=== PATIENT | male | born 1950 | race Caucasian/White ===

== ENCOUNTER 2016-12-03 09:26 | Emergency (ER) | payer OTHER ==
[~2016-12-03] VITALS: Ht 172.7 cm; Wt 94.0 kg
[~2016-12-03 09:26] MED LIST: AMLO-145 PO; ASPI-664 PO; ATOR40TA68 PO; CLON-379 PO; FINA5TAB PO; LOSA50TA2 PO; TAMS-14 PO
[2016-12-03 09:29] VITALS: Ht 172.7 cm; Wt 94.0 kg
[2016-12-03] MEDS ORDERED: NPH10OT RIGHT EAR (09:41)
--- NOTE | 2016-12-03 09:48 | ERD ---
ER Documentation Chief Complaint Date/Time DATE: 12/03/16 TIME: 09:42 Chief Complaint rt ear pain since yesterday HPI 66 year old male presents to the emergency department complaining of moderate ear pain and fullness of the right ear. He states he used a Q-tip yesterday. Patient is asking to clean it. He denies fevers. ROS All systems reviewed and are negative except as per history of present illness. Medications Home Meds Active Scripts Neomycin/Polymyxin/Hydrocort* (Cortisporin* Otic) 10 Ml Susp, 4 DROP RIGHT EAR QID for 7 Days, EA Prov:MANI VALLE PA-C 12/03/16 Clonidine Hcl* (Clonidine Hcl*) 0.1 Mg Tab, 0.1 MG PO Q8 Y for HTN, #90 TAB for systolic blood pressure above 170 Prov:USHAMEGHANN Gong 12/06/15 Losartan Potassium* (Cozaar*) 50 Mg Tablet, 50 MG PO BID for 30 Days, TAB 3 Refills Prov:USHA,NTANJA Gong 12/06/15 Atorvastatin* (Atorvastatin*) 40 Mg Tablet, 40 MG PO HS for 30 Days, TAB 3 Refills Prov:USHAMEGHANN Gong 12/06/15 Aspirin* (Aspirin* EC) 81 Mg Tablet.dr, 81 MG PO DAILY for 30 Days, 3 Refills Prov:USHAMEGHANN Gong 12/06/15 Amlodipine Besylate* (Amlodipine Besylate*) 5 Mg Tablet, 5 MG PO BID for 30 Days , TAB 3 Refills Prov:USHAMEGHANN Gong 12/06/15 Reported Medications Finasteride* (Proscar*) 5 Mg Tablet, 5 MG PO DAILY, TAB 08/18/14 Tamsulosin Hcl* (Flomax*) 0.4 Mg Cap.er.24h, 0.4 MG PO DAILY, CAP 08/18/14 Allergies Allergies: Coded Allergies: Penicillins (Verified Allergy, Unknown, 12/18/14) PMhx/Soc History of Surgery: Yes (CHOLYCYSTECTOMY) Anesthesia Reaction: No Hx Neurological Disorder: No Hx Respiratory Disorders: No Hx Cardiac Disorders: Yes (HTN, ) Hx Psychiatric Problems: No Hx Miscellaneous Medical Probl: No Hx Alcohol Use: No Hx Substance Use: No Hx Tobacco Use: No Smoking Status: Never smoker Physical Exam Vitals Vital Signs Date Time Temp Pulse Resp B/P Pulse Ox O2 Delivery O2 Flow Rate FiO2 12/03/16 09:29 98.6 58 18 192/88 98 Physical Exam Const: No acute distress Head: Atraumatic Eyes: Normal Conjunctiva ENT: Normal Nose and Mouth. Right ear has cerumen impaction with erythema in right external canal, no purulence Left ear cerumen impaction Neck: Full range of motion..~ No meningismus. Resp: Clear to auscultation bilaterally Cardio: Regular rate and rhythm, no murmurs Abd: Soft, non tender, non distended. Normal bowel sounds Skin: No petechiae or rashes Back: No midline or flank tenderness Ext: No cyanosis, or edema Neur: Awake and alert Psych: Normal Mood and Affect Procedures/MDM 66 year old male presents to the emergency department with bilateral cerumen impaction and irritation in the right external canal most likely from q-tip usage yesterday vs mild/early otitis external. Patient does not have fevers or unstable vital signs, otitis media is unlikely. No evidence of mastoiditis. In the ED, ear lavage was done bilaterally. Patient was given prescription for Cortisporin for the right external canal. He is stable and appropriate to be discharged home to follow up with PCP. Return precautions were given Departure Diagnosis: Primary Impression: Right ear pain Condition: Stable Patient Instructions: Cerumen Impaction, Home Care, External Ear Infection ( Adult) Referrals: RAO AVELAR MD (PCP) Additional Instructions: FOLLOW UP WITH YOUR PRIMARY CARE PHYSICIAN TOMORROW.Return to this facility if you are not improving as expected. Take all medicines as directed. Return to this facility if you are not improving as expected. MANI VALLE PA-C Dec 03, 2016 09:48
[2016-12-03 10:11] VITALS: BP 156/88; PULSE 70; RESP 19
== END 2016-12-03 10:12 | disposition home or self-care (01) ==
LOC: FTE 09:26
DX: H92.01 Otalgia, right ear (principal); I10 Essential (primary) hypertension; Z79.82 Long term (current) use of aspirin
CPT/HCPCS: 99283

== ENCOUNTER 2018-03-03 10:01 | Inpatient (IN) | payer MEDICARE, OTHER ==
[~2018-03-03] VITALS: Ht 167.6 cm; Wt 75.3 kg
[~2018-03-03 10:01] MED LIST changes: -ASPI-664 PO; +ASPI-817 PO; +NPH10OT RIGHT EAR
[2018-03-03] MEDS ORDERED: ONDANSETRON 4 MG INJ IV STA (10:24)
[2018-03-03] MEDS ORDERED: NITROGLYCERIN 2% 1 GM OINT PKT TD STA (10:24)
[2018-03-03] MEDS ORDERED: morphine 4 MG/ML VIAL IV STA (10:24)
[2018-03-03] MEDS ORDERED: ASPIRIN 325 MG TAB PO STA (10:24)
[2018-03-03] MEDS ORDERED: NITROGLYCERIN (SL) 0.4 MG TAB SL PRN (10:30)
--- NOTE | 2018-03-03 10:49 | ERD ---
ER Documentation Chief Complaint Chief Complaint on and off sharp pain on the left chest radiates to the back since 4 am HPI This is a 67-year-old man with a history of a pacemaker who is here because of chest pain. He said at 4 AM he was awakened with substernal chest pressure radiating to the left scapula and left shoulder. Describes the pain as a pressure with occasional sharpness. No diaphoresis or shortness of breath, no palpitations or dizziness or near syncope. He says he had a stress test may be 6 months ago prior to his bilateral aorto femoropopliteal bypass. He says he has had pain since 4 AM today that is waxing and waning ROS All systems reviewed and are negative except as per history of present illness. Medications Home Meds Reported Medications Clonidine Patch (CLONIDINE PATCH) 0.2 Mg/24 Hr Patch, 1 PATCH.WK TD Q7D, #4 PATCH.WK 03/03/18 Carvedilol* (Carvedilol*) 12.5 Mg Tablet, 12.5 MG PO BID, #60 TAB 03/03/18 Tamsulosin Hcl* (Tamsulosin Hcl*) 0.4 Mg Cap.er.24h, 0.4 MG PO HS, CAP 03/03/18 Ezetimibe* (Zetia*) 10 Mg Tablet, 10 MG PO HS, TAB 03/03/18 Nifedipine* (Nifedipine ER*) 90 Mg Tablet.er, 90 MG PO DAILY, TAB 03/03/18 Hydralazine Hcl* (Hydralazine Hcl*) 100 Mg Tablet, 100 MG PO Q8, #90 TAB 03/03/18 Discontinued Reported Medications Finasteride* (Proscar*) 5 Mg Tablet, 5 MG PO DAILY, TAB 08/18/14 Tamsulosin Hcl* (Flomax*) 0.4 Mg Cap.er.24h, 0.4 MG PO DAILY, CAP 08/18/14 Discontinued Scripts Neomycin/Polymyxin/Hydrocort* (Cortisporin* Otic) 10 Ml Susp, 4 DROP RIGHT EAR QID for 7 Days, EA Prov:MANI VALLE PA-C 12/03/16 Clonidine Hcl* (Clonidine Hcl*) 0.1 Mg Tab, 0.1 MG PO Q8 PRN for HTN, #90 TAB for systolic blood pressure above 170 Prov:MEGHANN KERR 12/06/15 Losartan Potassium* (Cozaar*) 50 Mg Tablet, 50 MG PO BID for 30 Days, TAB 3 Refills Prov:MEGHANN KERR 12/06/15 Atorvastatin* (Atorvastatin*) 40 Mg Tablet, 40 MG PO HS for 30 Days, TAB 3 Refills Prov:MEGHANN KERR 12/06/15 Aspirin* (Aspirin* EC) 81 Mg Tablet.dr, 81 MG PO DAILY for 30 Days, 3 Refills Prov:MEGHANN KERR 12/06/15 Amlodipine Besylate* (Amlodipine Besylate*) 5 Mg Tablet, 5 MG PO BID for 30 Days, TAB 3 Refills Prov:MEGHANN KERR 12/06/15 Allergies Allergies: Coded Allergies: Penicillins (Verified Allergy, Unknown, 03/03/18) PMhx/Soc History of Surgery: Yes (CHOLYCYSTECTOMY) Anesthesia Reaction: No Hx Neurological Disorder: No Hx Respiratory Disorders: No Hx Cardiac Disorders: Yes (HTN, PACEMAKER) Hx Psychiatric Problems: No Hx Miscellaneous Medical Probl: No Hx Alcohol Use: No Hx Substance Use: No Hx Tobacco Use: No Smoking Status: Current every day smoker FmHx Family History: No coronary disease Physical Exam Vitals Vital Signs Date Temp Pulse Resp B/P (MAP) Pulse Ox O2 O2 Flow FiO2 Time Delivery Rate 03/03/18 Nasal 10:28 Cannula 03/03/18 97.8 70 18 193/86 98 10:02 (121) Physical Exam Const: Well-developed, well-nourished Head: Atraumatic, normocephalic Eyes: Normal Conjunctiva, PERRLA, EOMI, normal sclera, no nystagmus ENT: Normal External Ears, Nose and Mouth, moist mucus membranes. Neck: Full range of motion. No meningismus, no lymphadenopathy. Resp: Clear to auscultation bilaterally, no wheezing, rhonchi, rales Cardio: Regular rate and rhythm, no murmurs, S1 S2 present Abd: Soft, non tender x 4, non distended. Normal bowel sounds, no guarding or rebound, no pulsitile abdominal masses or bruits Skin: No petechiae or rashes, no ecchymosis , no maculopapular rash Back: No midline or flank tenderness Ext: No cyanosis, or edema, FROM x 4, normal inspection, neurovascularly intact x 4 Neur: Awake and alert, STR 5/5 x 4, sensation intact x 4, no focal findings, cerebellum intact Psych: Normal Mood and Affect Result Diagram: 03/03/18 1025 03/03/18 1025 Results 24 hrs Laboratory Tests Test 03/03/18 10:25 White Blood Count 5.9 10^3/ul Red Blood Count 5.11 10^6/ul Hemoglobin 10.9 g/dl Hematocrit 38.2 % Mean Corpuscular Volume 74.8 fl Mean Corpuscular Hemoglobin 21.3 pg Mean Corpuscular Hemoglobin Concent 28.5 g/dl Red Cell Distribution Width 17.6 % Platelet Count 227 10^3/UL Mean Platelet Volume 10.9 fl Immature Granulocytes % 0.300 % Neutrophils % 75.7 % Lymphocytes % 11.9 % Monocytes % 10.4 % Eosinophils % 1.4 % Basophils % 0.3 % Nucleated Red Blood Cells % 0.0 /100WBC Immature Granulocytes # 0.020 10^3/ul Neutrophils # 4.5 10^3/ul Lymphocytes # 0.7 10^3/ul Monocytes # 0.6 10^3/ul Eosinophils # 0.1 10^3/ul Basophils # 0.0 10^3/ul Nucleated Red Blood Cells # 0.0 10^3/ul Sodium Level 143 mmol/L Potassium Level 5.0 mmol/L Chloride Level 114 mmol/L Carbon Dioxide Level 16 mmol/L Anion Gap 13 Blood Urea Nitrogen 61 mg/dl Creatinine 3.61 mg/dl Est Glomerular Filtrat Rate mL/min 17 mL/min Glucose Level 155 mg/dl Calcium Level 8.8 mg/dl Total Bilirubin 0.0 mg/dl Direct Bilirubin 0.00 mg/dl Indirect Bilirubin 0.0 mg/dl Aspartate Amino Transf (AST/SGOT) 18 IU/L Alanine Aminotransferase (ALT/SGPT) 10 IU/L Alkaline Phosphatase 98 IU/L Troponin I < 0.012 ng/ml B-Type Natriuretic Peptide 3630 PG/ML Total Protein 8.0 g/dl Albumin 4.5 g/dl Globulin 3.50 g/dl Albumin/Globulin Ratio 1.28 Current Medications Medications Dose Sig/Lynnette Start Time Status Last (Trade) Ordered Route PRN Stop Time Admin Dose Reason Admin Aspirin 325 mg ONCE STAT 03/03/18 DC 03/03/18 (Aspirin) PO 10:24 10:33 03/03/18 10:27 1 inch ONCE STAT 03/03/18 DC 03/03/18 Nitroglycerin TD 10:24 10:33 03/03/18 10:27 (Nitroglyceri n 2% Oint) 1 tab Q5M UP TO 3 03/03/18 03/03/18 Nitroglycerin DOSES PRN 10:30 10:33 SL CHEST (Nitroglyceri PAIN n (Sl Tab) 0.4 Mg) Morphine 4 mg ONCE STAT 03/03/18 DC 03/03/18 Sulfate IV 10:24 10:33 (morphine) 03/03/18 10:27 Ondansetron 4 mg ONCE STAT 03/03/18 DC 03/03/18 HCl (Zofran IV 10:24 10:33 Inj) 03/03/18 10:27 Procedures/MDM EKG: Rate/Rhythm: Electronic atrial pacemaker, left anterior fascicular block QRS, ST, QT: NORMAL [place], QRS, QT] Impression: Abnormal EKG Ordering MD: RALPH SKELTON DO Location: E/R Room/Bed: PROCEDURE: XR Chest CLINICAL INDICATION: Chest pain TECHNIQUE: Frontal view of the chest COMPARISON: CR CHEST 12/04/2015; CR CHEST 08/18/2014 FINDINGS: Left-sided cardiac pacemaker with leads overlying the right atrium and right ventricle. The cardiomediastinal silhouette remains enlarged. Opacity in the left costophrenic angle may represent atelectasis or small effusion. There is a left lung base opacity which may represent atelectasis or infiltrate. No radiographic evidence of significant pneumothorax. No suspicious osseous lesions. IMPRESSION: Left costophrenic angle opacity may represent atelectasis or small pleural effusion. Right lung base opacities may represent atelectasis versus infiltrate. Cardiomegaly. Left cardiac pacemaker. RPTAT: AA Physician Bri Date Time Electronically viewed and signed by Jose Luis Whyte Physician on 03/03/2018 10:53 HtN/ CC: RALPH SKELTON DO [id number] The patient's pain was relieved with sublingual nitroglycerin Patient has elevated creatinine at 3.61 did not have a baseline from old records here. Cardiac Admit MDM: Patient's symptoms are concerning for cardiac cause will require inpatient workup and continuous monitoring. Further w/u for ischemia, arrhythmia, PE or dissection will be deferred to the inpatient team. Departure Diagnosis: Primary Impression: Chest pain Chest pain type: unspecified Qualified Codes: R07.9 - Chest pain, unspecified Condition: Stable RALPH SKELTON DO Mar 03, 2018 10:49
[2018-03-03] MEDS ORDERED: NIFE90TA11 PO (10:52)
[2018-03-03] MEDS ORDERED: EZET10TA31 PO (10:52)
[2018-03-03] MEDS ORDERED: HYDR100T25 PO (10:52)
[2018-03-03] MEDS ORDERED: CARV12.579 PO (10:53)
[2018-03-03] MEDS ORDERED: TAMS0.4C2 PO (10:53)
[2018-03-03] MEDS ORDERED: CLON1PAT2 TD (10:54)
[2018-03-03] MEDS ORDERED: ONDANSETRON 4 MG INJ IV PRN (13:30)
[2018-03-03] MEDS ORDERED: ACETAMINOPHEN 325 MG TAB PO PRN (13:30)
[2018-03-03 18:35] VITALS: PULSE 70
[2018-03-03 18:50] VITALS: BP 134/63; PULSE 70; RESP 20
--- NOTE | 2018-03-03 19:07 | CONS ---
DATE OF ADMISSION: 03/03/2018 DATE OF CONSULTATION: 03/03/2018 REASON FOR CONSULTATION: Chest pain, assess for acute coronary syndrome. REQUESTING PHYSICIAN: Luc Barclay MD, from the [employer]. HISTORY OF PRESENT ILLNESS: Mr. Klein is a 67-year-old male with history of hypertension; peripheral arterial disease, status post recent peripheral bypass surgery; chronic kidney disease, not on hemodialysis; BPH; hypertension; dyslipidemia; and permanent pacemaker for bradyarrhythmias who presents with complaints of substernal chest pain. The patient states that he was awoke from the morning with a pressure-like sensation with some sharp components without radiation or associated shortness of breath. The patient states that he tried to take his blood pressure medication, but the pain continued; therefore, he presented here to the emergency department at [facility]. Upon arrival, temperature 97.8, blood pressure 193/86, pulse 70, respiratory rate 18, and sat 98%. The patient's labs were white count 5.9, hemoglobin 10.9, and platelet count 227. Sodium 142, potassium 5.0, creatinine 3.6, BUN of 61, AST 18, and ALT 10. Troponin negative. BNP of 3,630. The patient underwent a chest x-ray revealing left costophrenic angle opacity, right lung base opacities, atelectasis versus infiltrates, and the patient's pacemaker with cardiomegaly by chest x-ray. The patient's electrocardiogram revealed atrial paced rhythm, rate of 70 with left axis deviation, diffuse nonspecific ST abnormalities, and septal Q's. The patient subsequently has had negative troponin x1 as stated above. Denies ongoing chest pain at this time. PAST MEDICAL HISTORY: As above in HPI. MEDICATIONS CURRENTLY IN HOSPITAL: 1. Some nitroglycerin. 2. Tylenol. 3. Zofran. MEDICATIONS PRIOR TO ADMIT: 1. Flomax 0.4 mg at bedtime. 2. Carvedilol 12.5 mg p.o. b.i.d. 3. Clonidine patch q. weekly. 4. Zetia 10 mg at bedtime. 5. Hydralazine 100 mg p.o. q.8. 5. Procardia 90 mg daily. ALLERGIES: PENICILLIN. SOCIAL HISTORY: No current tobacco, quit x8 years. No ETOH or illicit drug use. FAMILY HISTORY: No sudden cardiac or early CAD. REVIEW OF SYSTEMS: As above in HPI. CONSTITUTIONAL: No fevers or chills. PULMONARY: No current shortness of breath. CARDIOVASCULAR: Chest pain. GASTROINTESTINAL: No vomiting. GENITOURINARY: No hematuria. Chronic kidney disease. PSYCHIATRIC: No documented psych history. NEUROLOGIC: No documented history of CVA. ENDOCRINE: No documented history of diabetes mellitus. PHYSICAL EXAMINATION: VITAL SIGNS: Temperature of 97.9, blood pressure most recently 126/71, pulse 70, respiratory rate 18, and sat 98% on room air. GENERAL: The patient is alert, awake, and in no acute distress. NECK: JVP approximately 9 cm of water. CHEST: Fair movement throughout. Mild decreased breath sounds at bases bilaterally. HEART: Regular rate and rhythm. Normal S1 and S2. I/ systolic murmur. Nondisplaced PMI. ABDOMEN: Positive bowel sounds, soft. EXTREMITIES: No edema. 1+ pulses bilaterally in posterior tibial. LABORATORY DATA: As above in HPI with a creatinine 3.61, BUN of 61. Sodium 143 and potassium 5. BNP of 3,630. Troponin negative. White blood count of 5.9, hemoglobin 10.9, and platelet count 227. IMAGING STUDIES: As above in HPI. No further imaging studies for my review at this time. ECG: As in HPI. No further electrograms for my review at this time. IMPRESSION: 1. Chest pain, assess for acute coronary syndrome with some atypical features of cardiac etiology at this time, but given the patient with peripheral arterial disease, coronary artery disease equivalents, and cardiac risk factors. 2. Abnormal echocardiogram, assess for acute coronary syndrome. 3. Hypertension. 4. Dyslipidemia. 5. Peripheral arterial disease, status post peripheral bypass 3 months prior. 6. Remote tobacco, quit x8 years. 7. Anemia. 8. Renal failure. 9. Increased BNP, assess for congestive heart failure. RECOMMENDATIONS: 1. At this time, would admit patient to telemetry monitoring to follow rhythm and rate closely. 2. Complete the patient's rule out for an infarction to ensure the patient's chest pain was not due to acute coronary syndrome, ischemia, or infarction and send troponins q. 6h x2 along with CK and CK-MB given lack of adequate clearance of troponins in the setting of renal failure. 3. Check a 2D echo for this patient's ejection fraction, wall motion, or any major abnormalities. 4. Would place the patient on standing aspirin daily. 5. We will resume the patient's baseline blood pressure medication, carvedilol, hydralazine, clonidine, and nifedipine. 6. Resume the patient's baseline Zetia. Check a fasting lipid panel and adjust accordingly. 7. Will consider stress testing this patient although the patient at this time is not on hemodialysis and therefore a contrast study. If stress test is abnormal, may be ____ to his kidney function and then to initiation of hemodialysis. Thank you for allowing me to take part in the care of this patient. I will continue to follow him very closely with you with further recommendations to be made as the patient progresses through his inpatient hospital clinical course. Dictated By: REAGAN HORTON/SEA Conf#: [id number] DID#: [id number] CC: FABIO PONCE MD; PROSPER VALDEZ MD; LUC BARCLAY MD; RALPH SKELTON DO; REAGAN GONZALEZ MD;*EndCC* MTDD
[2018-03-03 19:40] VITALS: Ht 167.6 cm; Wt 75.3 kg
[2018-03-03 20:00] VITALS: PULSE 69
[2018-03-03] MEDS ORDERED: HEPARIN 1000 UNITS/ML 10 ML INJ IV PRN (20:00)
[2018-03-03] MEDS ORDERED: HEPARIN 1000 UNITS/ML 10 ML INJ IV ONE (20:00)
[2018-03-03 20:10] VITALS: BP 110/55; PULSE 70; RESP 20
[2018-03-03] MEDS ORDERED: CLONIDINE 0.2 MG/24 HR PATCH TRANSDERM SCH (20:30)
[2018-03-03] MEDS: TAMSULOSIN (SR) 0.4 MG CAP PO SCH (20:48)
[2018-03-03] MEDS: EZETIMIBE 10 MG TAB PO SCH (20:49)
[2018-03-03] MEDS: SOD CHLORIDE 0.9% 1,000 ML IV SCH (20:52)
[2018-03-03] MEDS: HEPARIN 25000 UNITS/250 ML 250 ML IV SCH (21:43)
[2018-03-03 23:18] VITALS: BP 105/53; PULSE 71; RESP 20
[2018-03-04] VITALS (11 sets, daily range): BP systolic 115–123; BP diastolic 55–59; PULSE 70–75; RESP 17–22
[2018-03-04] MEDS: HEPARIN 25000 UNITS/250 ML 250 ML IV SCH ×3 (04:42→21:14)
--- NOTE | 2018-03-04 09:13 | HP ---
DATE OF ADMISSION: 03/03/2018 CHIEF COMPLAINT: Chest pain. HISTORY OF PRESENT ILLNESS: A 67-year-old male with a history of hypertension and peripheral vascula r disease, status post aortobifemoral bypass graft about 3 months prior to admission, presented to Em ergency Room with a complaint of substernal, pressure-like chest pain. There was no associated short ness of breath. There was no nausea or vomiting. Initial evaluation in the emergency room included a repeat troponin. The findings were consistent with acute non-St elevation myocardial infarction. The patient was evaluated by Dr. Jimenes in the emergency room. He had undergone a cardiac workup pr ior to his aortobifemoral bypass 3 months prior to admission and that study did not show any evidence of coronary ischemia. The EKG showed atrial paced rhythm at a rate of 70 but there was diffuse nons pecific ST abnormalities and septal defect. PAST MEDICAL HISTORY: 1. Hypertension. 2. Peripheral vascular disease. 3. Chronic kidney disease, stage 4. 4. Hyperlipidemia. 5. Benign prostatic hyperplasia. PAST SURGICAL HISTORY: 1. Status post aortobifemoral bypass graft about 3 months prior to admission. 2. Status post permanent pacemaker placement. MEDICATIONS: Prior to admission; 1. Coreg 12.5 mg b.i.d. 2. Clonidine patch weekly. 3. Hydralazine 100 mg 3 times daily. 4. Procardia 90 mg daily. 5. Flomax 0.4 mg daily. 6. Zetia 10 mg at bedtime. SOCIAL HISTORY: The patient has a previous history of tobacco use. He quit smoking 8 years ago. He denies any alcohol or drug abuse. PHYSICAL EXAMINATION GENERAL: Well-developed, well-nourished male who is in no apparent distress. Vital signs were stabl e. He is afebrile. He denies any ongoing chest pain. HEENT: Extraocular muscles intact. Pupils are equal, round and reactive to light bilaterally. Scle jaswinder are anicteric. Oropharynx is clear and moist. NECK: Supple, no JVD, no carotid bruits. LUNGS: Clear to auscultation bilaterally. HEART: Regular rate and rhythm. No murmurs or gallops. ABDOMEN: Soft, nontender, nondistended with normoactive bowel sounds. EXTREMITIES: No clubbing, cyanosis or edema. Distal pulses are present. Labs revealed a BUN of 61 and creatinine of 3.61. Second and third troponin have been 3.15 and 5.13. ASSESSMENT: 1. A 67-year-old male with acute non-ST elevation myocardial infarction. The patient cannot go unde r coronary angiography due to his underlying chronic kidney disease and high risk of contrast-induced nephropathy. Optimal medical management was recommended. 2. Coronary artery disease. 3. Peripheral vascular disease, status post aortobifemoral bypass graft about 3 months prior to admi ssion. 4. Hypertension. 5. Stage 4 chronic kidney disease. 6. Hyperlipidemia. 7. Benign prostatic hyperplasia. 8. Status post pacemaker placement. 9. Anemia of chronic disease. PLAN: I am placing in tele observation. Continue heparin drip. Resume previous home medications, r eview 2D echo, cardiology followup. DISCHARGE PLANNING: Based on derrick builder's recommendations. The case was discussed with Dr. Pa burgess. Plan of care was discussed with the patient at the bedside. Dictated By: GILLES KERR/SEA Conf#: [id number] DID#: [id number] CC: GILLES BARCLAY MD; REAGAN JIMENES MD;*EndCC*
[2018-03-04] MEDS: FINASTERIDE 5 MG TAB PO SCH (09:25)
[2018-03-04] MEDS: SOD CHLORIDE 0.9% 1,000 ML IV SCH (09:28)
[2018-03-04] MEDS: ISOSORBIDE DINITRATE 10 MG TAB PO SCH ×3 (09:30→21:00)
--- NOTE | 2018-03-04 12:03 | CONS ---
Date/Time of Note Date/Time of Note DATE: 03/04/18 TIME: 11:56 Assessment/Plan Assessment/Plan Hospital Course IMPRESSION: 1. Chest pain, assess for acute coronary syndrome given the patient with peripheral arterial disease, coronary artery disease equivalents, and cardiac risk factors. Now with positive troponin c/w NSTEMI with mild uptrend in the setting of significant renal failure. No current chest pain. 2. Abnormal echocardiogram, assess for acute coronary syndrome. 3. Hypertension. 4. Dyslipidemia. 5. Peripheral arterial disease, status post peripheral bypass 3 months prior. 6. Remote tobacco, quit x8 years. 7. Anemia. 8. Renal failure. 9. Increased BNP, assess for congestive heart failure. Recc: -Tele -Have spoken with patient about cardiac cath and patient does not want cath at this time for fear of needing HD. This was also confirmed by discussion with patient's primary manager ccu Dr Casanova. Thus as patient is chest pain free at this time will maximize medical theraoy and follow-up echo. -Thus will continue IV heparin at this time -Continue asa and start plavix with load 300 mg today -Will f/u echo -Continue BB -Continue oral nitrates and CCB -Continue hydralazine to assure good BP control -trend cardiac enzymes including CK/CK-MB given lack of adequate clearance of troponin in the setting of renal failure and thus difficulty in discerning between ongoing damage or not. Result Diagram: 03/03/18200703/03/18 1025 Results 24hrs Laboratory Tests Test 03/03/18 17:19 03/03/18 20:08 03/04/18 00:25 03/04/18 04:06 Creatine Kinase 196 203 H Creatine Kinase 8.5 8.9 Index Creatinine Kinase MB 16.70 H 18.00 H (Mass) Troponin I 3.100 *H 5.130 *H White Blood Count 4.7 #L Red Blood Count 4.42 L Hemoglobin 9.5 L Hematocrit 32.2 L Mean Corpuscular 72.9 L Volume Mean Corpuscular 21.5 L Hemoglobin Mean Corpuscular 29.5 L Hemoglobin Concent Red Cell 17.8 H Distribution Width Platelet Count 205 Mean Platelet Volume 11.2 H Immature 0.600 H Granulocytes % Neutrophils % Segmented 64 Neutrophils % (Manual) Band Neutrophils % 2 (Manual) Lymphocytes % Lymphocytes % 15 (Manual) Monocytes % Monocytes % (Manual) 11 Eosinophils % Eosinophils % 3 (Manual) Basophils % Basophils % (Manual) 2 Metamyelocytes % 3 H (manual) Nucleated Red Blood 0.0 Cells % Immature 0.030 Granulocytes # Neutrophils # Neutrophils # 3.0 (Manual) Band Neutrophils # 0.0 Lymphocytes (Manual) 0.7 L Lymphocytes # Monocytes # Monocytes # (Manual) 0.5 Eosinophils # Basophils # Basophils # (Manual) 0.0 Metamyelocytes # 0.1 H Nucleated Red Blood Cells # Platelet Estimate NORMAL Giant Platelets 1 H Polychromasia 3+ Poikilocytosis 3+ Anisocytosis 2+ Microcytosis 1+ Macrocytosis 1+ Prothrombin Time 13.4 Prothrombin Time 1.0 Ratio INR International 1.01 Normalized Ratio Activated 33.6 48.3 H Partial Thromboplast Time Test 03/04/18 04:07 03/04/18 10:28 Triglycerides Level 53 Cholesterol Level 118 LDL Cholesterol, 75 Calculated HDL Cholesterol 32 Cholesterol/HDL 3.6 Ratio Activated 46.5 H Partial Thromboplast Time Consultation Date/Type/Reason Admit Date/Time Mar 03, 2018 at 13:08 Initial Consult Date 03/03/18 Type of Consult cardiology Reason for Consultation Nstemi Requesting Provider: GILLES BARCLAY MD Exam/Review of Systems Vital Signs Vitals Vital Signs Date Temp Pulse Resp B/P (MAP) Pulse Ox O2 O2 Flow FiO2 Time Delivery Rate 03/04/18 70 08:01 03/04/18 98.2 17 122/58 98 Room Air 07:15 (79) Intake and Output 03/03/18 03/03/18 03/04/18 1515:00 23:00 07:00 IntakeIntake Total 1334 ml BalanceBalance 1334 ml Exam Review of Systems: CONSTITUTIONAL: No fevers, chills. PULMONARY: No sob CARDIOVASCULAR: No chest pain/palpitations GASTROINTESTINAL: No nausea/vomiting. GENITOURINARY: No hematuria/dysuria. MUSCULOSKELETAL: No myagias/arthalgias. PSYCHIATRIC: The patient denies depression. NEUROLOGIC: No weakness Constitutional: alert Psych: no complaints Head: normocephalic ENMT: mucosa pink and moist Neck: supple, jvd (9 cm water) Cardiovascular: regular rate and rhythm Gastrointestinal: soft, non-tender Musculoskeletal: muscle tone (normal) Extremities: edema (none) Neurological: other (No focal deficits) Medications Medications Current Medications Nitroglycerin (Nitroglycerin (Sl Tab) 0.4 Mg) 1 tab Q5M UP TO 3 DOSES PRN SL CHEST PAIN Last administered on 03/03/18at 10:33; Admin Dose 1 TAB; Start 03/03/18 at 10:30 Carvedilol (Coreg) 12.5 mg BID PO Last administered on 03/04/18 09:26; Admin Dose 12.5 MG; Start 03/03/18 at 21:00 EZETIMIBE (Zetia) 10 mg HS PO Last administered on 03/03/18 20:49; Admin Dose 10 MG; Start 03/03/18 at 21:00 Hydralazine HCl (Apresoline) 100 mg Q8 PO Last administered on 03/04/18 05:39; Admin Dose 100 MG; Start 03/03/18 at 22:00 Nifedipine (Procardia Xl) 90 mg DAILY PO ; Start 03/04/18 at 09:00 Clonidine (Catapres) 0.1 mg Q6H PRN PO SBP>170; Start 03/03/18 at 17:00 Heparin Sodium (Porcine) (Heparin (1000 Units/ml)) 4,000 unit PER PROTOCOL PRN IV Per Protocol; Start 03/03/18 at 20:00 Heparin Sodium (Porcine) 250 ml @ 9 mls/hr PER PROTOCOL IV Last administered on 03/04/18at 04:42; Admin Dose 10.5 MLS/HR; Start 03/03/18 at 20:00 Sodium Chloride 1,000 ml @ 75 mls/hr [id number] IV Last administered on 03/04/18at 09:28; Admin Dose 75 MLS/HR; Start 03/03/18 at 20:00 Clonidine HCl (Catapres-Tts 2 Patch) 0.2 patch Q7D TRANSDERM ; Start 03/03/18 at 20:30 Tamsulosin HCl (Flomax) 0.4 mg HS PO Last administered on 03/03/18 20:48; Admin Dose 0.4 MG; Start 03/03/18 at 21:00 Finasteride (Proscar) 5 mg DAILY PO Last administered on 03/04/18 09:25; Admin Dose 5 MG; Start 03/04/18 at 09:00 Isosorbide Dinitrate (Isordil) 10 mg TID PO Last administered on 03/04/18at 09:30; Admin Dose 10 MG; Start 03/04/18 at 09:00 REAGAN GONZALEZ Mar 04, 2018 12:03
[2018-03-04] MEDS ORDERED: CLOPIDOGREL 75 MG TAB ONE (12:16)
[2018-03-04] MEDS ORDERED: ASPIRIN 325 MG TAB ONE (12:16)
[2018-03-04] MEDS ORDERED: ASPIRIN 81 MG TAB ONE (12:26)
[2018-03-04] MEDS ORDERED: CLOPIDOGREL 75 MG TAB PO ONE (12:30)
[2018-03-04] MEDS: NIFEdipine (XL) 90 MG TAB PO SCH (12:50)
[2018-03-04] MEDS: ASPIRIN 81 MG TAB PO SCH (12:50)
[2018-03-04] MEDS: TAMSULOSIN (SR) 0.4 MG CAP PO SCH (20:59)
[2018-03-04] MEDS: EZETIMIBE 10 MG TAB PO SCH (20:59)
[2018-03-04] MEDS: ATORVASTATIN 80 MG TAB PO SCH (21:01)
--- NOTE | 2018-03-04 21:37 | RADRPT ---
Echocardiogram Report Patient Name: ARA BARBOZA Gender: Male Date: 1950 Study Date: 04-Mar-2018 Radiation Physicist: Leanna Weinberg [facility] Location: 509 Ref. Physician: REAGAN JIMENES Quality: Good Procedures: Transthoracic echocardiogram with complete 2D, M-Mode, and doppler examination. Indications: Chest Pain. 2D/M Mode Doppler Measurement Value Normal Ranges Measurement Value Normal Ranges LVIDd 2D 5.1 3.5 - 5.6 cm AV Mean Chito 1.4 m/sec LVIDs 2D 2.9 2.1 - 4.1 cm AV Mean PG 10.0 mmHg FS 2D 42.8 % AV Peak Chito 2.4 m/sec LVPWd 2D 1.3 0.6 - 1.1 cm AV Peak PG 22.0 mmHg IVSd 2D 1.3 0.6 - 1.1 cm AV VTI 48.1 cm IVS/LVPW 2D 0.9 AI Peak PG 61.0 mmHg AoR Diam 2D 3.6 2.0 - 3.7 cm AI Peak Chito 3.9 m/sec LA/Ao 2D 1 0 - 1 AI PHT 644.0 msec EDV 2D 130.0 cm3 LVOT Peak Chito 1.3 m/sec ESV 2D 24.4 cm3 LVOT Peak PG 6.0 mmHg LA Dimen 2D 4.5 2.3 - 4.0 cm MV E Peak Chito 1.0 m/sec MV A Peak Chito 0.7 m/sec MV E/A 1.4 MV Decel Time 243 msec MV E/A 1.4 TR Peak Chito 1.7 m/sec TR Peak PG 12.0 mmHg RVSP 20.0 mmHg RA Pressure 8.0 Findings Left Ventricle: Normal left ventricular systolic function. Normal left ventricular cavity size. Moderate concentric left ventricular hypertrophy. Ejection fraction is visually estimated at 55 %. Tissue Doppler/Mitral Doppler indices are within normal limits. Right Ventricle: Normal right ventricular size. Normal right ventricular systolic function. Left Atrium: There is mild enlargement of left atrium. Right Atrium: The right atrium is normal in size. Mitral Valve: Normal appearance of the mitral valve. Mild mitral annular calcification. Trace mitral regurgitation. Aortic Valve: Aortic valve Max velocity 2.36 m/sec. Max PG 22.00 mmHg. Mean PG 10.00 mmHg. Aortic sclerosis without significant stenosis. Mild to moderate aortic valve regurgitation. Tricuspid Valve: Normal appearance of the tricuspid valve. Estimated peak PA systolic pressure 20 mmHg. There is trace tricuspid regurgitation. Pulmonic Valve: Normal pulmonic valve appearance. Pericardium: Normal pericardium with no significant pericardial effusion. Aorta: Normal aortic root. IVC: Normal size and normal respiratory collapse consistent with normal right atrial pressure. Conclusions Normal left ventricular systolic function. Normal left ventricular cavity size. Moderate concentric left ventricular hypertrophy. Ejection fraction is visually estimated at 55 %. Tissue Doppler/Mitral Doppler indices are within normal limits. There is mild enlargement of left atrium. Normal appearance of the mitral valve. Mild mitral annular calcification. Trace mitral regurgitation. Aortic valve Max velocity 2.36 m/sec. Max PG 22.00 mmHg. Mean PG 10.00 mmHg. Aortic sclerosis without significant stenosis. Mild to moderate aortic valve regurgitation. Normal appearance of the tricuspid valve. Estimated peak PA systolic pressure 20 mmHg. There is trace tricuspid regurgitation. Electronically Signed By: Reagan Jimenes 04-Mar-2018 21:36:44 -0800 Patient Name: ARA BARBOZA Study Date: 04-Mar-2018 [id number]
[2018-03-05] VITALS (13 sets, daily range): BP systolic 112–137; BP diastolic 56–66; PULSE 66–70; RESP 18–22
[2018-03-05] MEDS: SOD CHLORIDE 0.9% 1,000 ML IV SCH
[2018-03-05] MEDS: HEPARIN 25000 UNITS/250 ML 250 ML IV SCH (06:49)
[2018-03-05] MEDS: NIFEdipine (XL) 90 MG TAB PO SCH (08:27)
[2018-03-05] MEDS: ASPIRIN 81 MG TAB PO SCH (08:27)
[2018-03-05] MEDS: CLOPIDOGREL 75 MG TAB PO SCH (08:27)
[2018-03-05] MEDS: ISOSORBIDE DINITRATE 10 MG TAB PO SCH ×3 (08:27→20:36)
[2018-03-05] MEDS: FINASTERIDE 5 MG TAB PO SCH (08:27)
--- NOTE | 2018-03-05 08:47 | CONS ---
Date/Time of Note Date/Time of Note DATE: 03/05/18 TIME: 08:45 Assessment/Plan Assessment/Plan Assessment/Plan 1. Chest pain, assess for acute coronary syndrome given the patient with peripheral arterial disease, coronary artery disease equivalents, and cardiac risk factors. Now with positive troponin c/w NSTEMI with mild uptrend in the setting of significant renal failure. No current chest pain. Pt declined LHC per DR. Jimenes notes. 2. Abnormal echocardiogram, assess for acute coronary syndrome - con't med opt imization. 3. Hypertension- wel maintain, will monitor clinically. 4. Dyslipidemia. 5. Peripheral arterial disease, status post peripheral bypass 3 months prior- no pain now. 6. Remote tobacco, quit x8 years. 7. Anemia- H/H stable, no bleding. 8. Renal failure. 9. Increased BNP, assess for congestive heart failure. Result Diagram: 03/03/18200703/03/18 1025 Results 24hrs Laboratory Tests Test 03/04/18 10:28 03/04/18 18:43 03/05/18 00:20 03/05/18 02:54 Activated 46.5 H 83.9 *H 62.0 H Partial Thromboplast Time Creatine Kinase 98 79 Creatine Kinase 6.6 6.1 Index Creatinine Kinase MB 6.43 H 4.85 H (Mass) Troponin I 2.420 *H 2.180 *H Test 03/05/18 05:05 Creatine Kinase 66 Creatine Kinase 5.5 Index Creatinine Kinase MB 3.66 H (Mass) Troponin I 1.910 *H Consultation Date/Type/Reason Admit Date/Time Mar 05, 2018 at 07:49 Initial Consult Date Requesting Provider: GILLES BARCLAY MD 24 HR Interval Summary Free Text/Dictation No acute events - no active CP - Cr high - renal follows - no LHC planned now per DR. Jimenes. ROS: No fever, no chills, no nausea, no vomiting, no diarrhea/constipation No recent weight changes No chest pain, no PND, no orthopnea - increased SOB No dizziness, blurred vision No thirst, no heat or cold intolerance Exam/Review of Systems Vital Signs Vitals Vital Signs Date Temp Pulse Resp B/P (MAP) Pulse Ox O2 O2 Flow FiO2 Time Delivery Rate 03/05/18 70 08:01 1/15/19 97.4 22 125/60 96 Room Air 07:36 (81) Intake and Output 03/04/18 03/04/18 03/05/18 1515:00 23:00 07:00 IntakeIntake Total 450 ml 1390.5 ml 1400.00 ml BalanceBalance 450 ml 1390.5 ml 1400.00 ml Exam General: WN/WD/NAD, AOx 3 HEENT: Unicetric/atraumatic/EOMI (follow commands) NECK: JVD elevated, no thyromegaly Lymph: no lymphadenopathy HEART: regular with no S3, II/ systolic murmur at apex LUNGS: Coarse sounds ABD: soft, NT, ND, +BS : Intact Neuro: non focal SKIN: chronic changes EXT: trace edema Medications Medications Current Medications Nitroglycerin (Nitroglycerin (Sl Tab) 0.4 Mg) 1 tab Q5M UP TO 3 DOSES PRN SL CHEST PAIN Last administered on 03/03/18at 10:33; Admin Dose 1 TAB; Start 03/03/18 at 10:30 Carvedilol (Coreg) 12.5 mg BID PO Last administered on 03/05/18at 08:27; Admin Dose 12.5 MG; Start 03/03/18 at 21:00 EZETIMIBE (Zetia) 10 mg HS PO Last administered on 03/04/18at 20:59; Admin Dose 10 MG; Start 03/03/18 at 21:00 Hydralazine HCl (Apresoline) 100 mg Q8 PO Last administered on 03/05/18at 06:31; Admin Dose 100 MG; Start 03/03/18 at 22:00 Nifedipine (Procardia Xl) 90 mg DAILY PO Last administered on 03/05/18 08:27; Admin Dose 90 MG; Start 03/04/18 at 09:00 Clonidine (Catapres) 0.1 mg Q6H PRN PO SBP>170; Start 03/03/18 at 17:00 Heparin Sodium (Porcine) (Heparin (1000 Units/ml)) 4,000 unit PER PROTOCOL PRN IV Per Protocol Last administered on 03/04/18at 13:02; Admin Dose 4,000 UNIT; Start 03/03/18 at 20:00 Heparin Sodium (Porcine) 250 ml @ 9 mls/hr PER PROTOCOL IV Last administered on 03/05/18at 06:49; Admin Dose 12.75 MLS/HR; Start 03/03/18 at 20:00 Sodium Chloride 1,000 ml @ 75 mls/hr [id number] IV Last administered on 03/05/18 00:00; Admin Dose 75 MLS/HR; Start 03/03/18 at 20:00 Clonidine HCl (Catapres-Tts 2 Patch) 0.2 patch Q7D TRANSDERM ; Start 03/03/18 at 20:30 Tamsulosin HCl (Flomax) 0.4 mg HS PO Last administered on 03/04/18 20:59; Admin Dose 0.4 MG; Start 03/03/18 at 21:00 Finasteride (Proscar) 5 mg DAILY PO Last administered on 03/05/18 08:27; Admin Dose 5 MG; Start 03/04/18 at 09:00 Isosorbide Dinitrate (Isordil) 10 mg TID PO Last administered on 03/05/18 08:27; Admin Dose 10 MG; Start 03/04/18 at 09:00 Aspirin (Aspirin) 81 mg DAILY PO Last administered on 03/05/18 08:27; Admin Dose 81 MG; Start 03/04/18 at 12:30 Clopidogrel Bisulfate (plaVIX) 75 mg DAILY PO Last administered on 03/05/18 08:27; Admin Dose 75 MG; Start 03/05/18 at 09:00 Atorvastatin Calcium (Lipitor) 80 mg HS PO Last administered on 03/04/18 21:01; Admin Dose 80 MG; Start 03/04/18 at 21:00 SUPA KISER MD Mar 05, 2018 08:47
[2018-03-05] MEDS ORDERED: FUROSEMIDE 40 MG INJ IV ONE (12:00)
--- NOTE | 2018-03-05 12:13 | PN ---
Date/Time of Note Date/Time of Note DATE: 03/05/18 TIME: 11:55 Assessment/Plan VTE Prophylaxis Risk score (from Ns)>0 risk: 5 SCD applied (from Ns): Yes Pharmacological prophylaxis: heparin Lines/Catheters IV Catheter Type (from [facility]): Peripheral IV Assessment/Plan Assessment/Plan 67 yo male with: 1. NSTEMI, coronary artery disease, medical management only, patient with advanced chronic kidney disease stage IV unable to use contrast for procedure. Appreciate recommendations from cardiology, troponin did peak coming down now. Will DC heparin drip. Continue antiplatelet therapy. BNP is elevated at 6500, IV fluids have been discontinued and patient received 1 dose of Lasix. Further recommendations per cardiology. 2. Congestive heart failure, likely mostly diastolic heart failure with possi ble underlying mild systolic heart failure, ejection fraction 55% on echocardiogram on this admission. IV fluids discontinued and patient will be given a dose of Lasix given his BNP has doubled today. Monitor respiratory status. 3. Status post permanent pacemaker, likely with sick sinus syndrome versus high-grade heart block, patient is 100% A paced. 4. Chronic kidney disease stage IV, renal function seems to be at baseline, however he is noted to have some hyperkalemia today, patient to receive a dose of Lasix and repeating potassium level. IV fluids discontinued. Repeat BMP in the morning. 5. Peripheral vascular disease, status post aorto bifemoral bypass graft approximately 3 months ago. Patient seems to be stable, continue current medications. 6. Hypertension: Continue current medications. We need to clarify if patient indeed on clonidine patch or not. 7. Hyperlipidemia: Continue home medications. 8. BPH: Continue home medications 9. Anemia of chronic disease: Likely secondary to chronic kidney disease, H&H remains stable. Prophylaxis: Tolerating p.o., heparin drip will be discontinued and switch to heparin subcu for DVT prophylaxis. Disposition: Repeat potassium level pending, diuresis, monitor overnight and hopefully stable for discharge in the next 24 hours. Result Diagram: 03/03/18200703/05/18 0505 Results 24hrs Laboratory Tests Test 03/04/18 18:43 03/05/18 00:20 03/05/18 02:54 03/05/18 05:05 Activated 83.9 *H 62.0 H Partial Thromboplast Time Creatine Kinase 98 79 66 Creatine Kinase 6.6 6.1 5.5 Index Creatinine Kinase MB 6.43 H 4.85 H 3.66 H (Mass) Troponin I 2.420 *H 2.180 *H 1.910 *H Sodium Level 142 Potassium Level 5.2 H Chloride Level 117 H Carbon Dioxide Level 12 L Anion Gap 13 Blood Urea Nitrogen 63 H Creatinine 3.54 H Est Glomerular 17 L Filtrat Rate mL/min Glucose Level 94 # Calcium Level 7.8 L Magnesium Level 1.7 Total Bilirubin 0.0 L Direct Bilirubin 0.00 Indirect Bilirubin 0.0 Aspartate Amino 68 #H Transf (AST/SGOT) Alanine 52 Aminotransferase (AL T/SGPT) Alkaline Phosphatase 85 B-Type Natriuretic 6480 H Peptide Total Protein 6.2 # Albumin 3.3 # Globulin 2.90 Albumin/Globulin 1.13 Ratio Test 03/05/18 09:43 Activated 67.3 H Partial Thromboplast Time Subjective 24 Hr Interval Summary Free Text/Dictation Patient denies any chest pain, shortness of breath. He is doing well. He has not ambulated yet. We will discontinue heparin drip and IV fluids, patient to be diuresed a little bit today. Encourage ambulation and repeat labs in a.m. given abnormal BMP and hyperkalemia. If remains stable, discharge planning for tomorrow. Plan of care and discharge planning discussed with patient who is in agreement. Exam/Review of Systems Vital Signs Vitals Vital Signs Date Temp Pulse Resp B/P (MAP) Pulse Ox O2 O2 Flow FiO2 Time Delivery Rate 03/05/18 97.9 70 18 126/59 96 Room Air 11:29 (81) Intake and Output 03/04/18 03/04/18 03/05/18 1515:00 23:00 07:00 IntakeIntake Total 450 ml 1390.5 ml 1400.00 ml BalanceBalance 450 ml 1390.5 ml 1400.00 ml Exam Constitutional: alert, oriented, well developed Respiratory: normal air movement, diminished breath sounds (At bases bilaterally slightly.) Cardiovascular: regular rate and rhythm, nl pulses Gastrointestinal: soft, non-tender Musculoskeletal: nl extremities to inspection, nl gait and stance Extremities: normal pulses, other (No edema, clubbing or cyanosis) Neurological: W[employer]OTH II-XII intact, nl mental status, nl speech, nl strength Medications Medications Current Medications Nitroglycerin (Nitroglycerin (Sl Tab) 0.4 Mg) 1 tab Q5M UP TO 3 DOSES PRN SL CHEST PAIN Last administered on 03/03/18 10:33; Admin Dose 1 TAB; Start 03/03/18 at 10:30 Carvedilol (Coreg) 12.5 mg BID PO Last administered on 03/05/18 08:27; Admin Dose 12.5 MG; Start 03/03/18 at 21:00 EZETIMIBE (Zetia) 10 mg HS PO Last administered on 03/04/18 20:59; Admin Dose 10 MG; Start 03/03/18 at 21:00 Hydralazine HCl (Apresoline) 100 mg Q8 PO Last administered on 03/05/18 06:31; Admin Dose 100 MG; Start 03/03/18 at 22:00 Nifedipine (Procardia Xl) 90 mg DAILY PO Last administered on 03/05/18 08:27; Admin Dose 90 MG; Start 03/04/18 at 09:00 Clonidine (Catapres) 0.1 mg Q6H PRN PO SBP>170; Start 03/03/18 at 17:00 Heparin Sodium (Porcine) (Heparin (1000 Units/ml)) 4,000 unit PER PROTOCOL PRN IV Per Protocol Last administered on 03/04/18 13:02; Admin Dose 4,000 UNIT; Start 03/03/18 at 20:00 Clonidine HCl (Catapres-Tts 2 Patch) 0.2 patch Q7D TRANSDERM ; Start 03/03/18 at 20:30 Tamsulosin HCl (Flomax) 0.4 mg HS PO Last administered on 03/04/18 20:59; Admin Dose 0.4 MG; Start 03/03/18 at 21:00 Finasteride (Proscar) 5 mg DAILY PO Last administered on 03/05/18 08:27; Admin Dose 5 MG; Start 03/04/18 at 09:00 Isosorbide Dinitrate (Isordil) 10 mg TID PO Last administered on 03/05/18 08:27; Admin Dose 10 MG; Start 03/04/18 at 09:00 Aspirin (Aspirin) 81 mg DAILY PO Last administered on 03/05/18 08:27; Admin Dose 81 MG; Start 03/04/18 at 12:30 Clopidogrel Bisulfate (plaVIX) 75 mg DAILY PO Last administered on 03/05/18at 08:27; Admin Dose 75 MG; Start 03/05/18 at 09:00 Atorvastatin Calcium (Lipitor) 80 mg HS PO Last administered on 03/04/18at 21:01; Admin Dose 80 MG; Start 03/04/18 at 21:00 Furosemide (Lasix) 40 mg ONCE ONCE IV ; Start 03/05/18 at 12:00; Stop 03/05/18 at 12:01 Imaging Imaging Echocardiogram Report Patient Name: ARA BARBOZA Gender: Male Date: 1950 Study Date: 04-Mar-2018 [employer]viculture Professor: Leanna Weinberg RDCS Location: 509 Ref. Physician: REAGAN JIMENES Quality: Good Procedures: Transthoracic echocardiogram with complete 2D, M-Mode, and doppler examination. Indications: Chest Pain. 2D/M Mode Doppler Measurement Value Normal Ranges Measurement Value Normal Ranges LVIDd 2D 5.1 3.5 - 5.6 cm AV Mean Chito 1.4 m/sec LVIDs 2D 2.9 2.1 - 4.1 cm AV Mean PG 10.0 mmHg FS 2D 42.8 % AV Peak Chito 2.4 m/sec LVPWd 2D 1.3 0.6 - 1.1 cm AV Peak PG 22.0 mmHg IVSd 2D 1.3 0.6 - 1.1 cm AV VTI 48.1 cm IVS/LVPW 2D 0.9 AI Peak PG 61.0 mmHg AoR Diam 2D 3.6 2.0 - 3.7 cm AI Peak Chito 3.9 m/sec LA/Ao 2D 1 0 - 1 AI PHT 644.0 msec EDV 2D 130.0 cm3 LVOT Peak Chito 1.3 m/sec ESV 2D 24.4 cm3 LVOT Peak PG 6.0 mmHg LA Dimen 2D 4.5 2.3 - 4.0 cm MV E Peak Chito 1.0 m/sec MV A Peak Chito 0.7 m/sec MV E/A 1.4 MV Decel Time 243 msec MV E/A 1.4 TR Peak Chito 1.7 m/sec TR Peak PG 12.0 mmHg RVSP 20.0 mmHg RA Pressure 8.0 Findings Left Ventricle: Normal left ventricular systolic function. Normal left ventricular cavity size. Moderate concentric left ventricular hypertrophy. Ejection fraction is visually estimated at 55 %. Tissue Doppler/Mitral Doppler indices are within normal limits. Right Ventricle: Normal right ventricular size. Normal right ventricular systolic function. Left Atrium: There is mild enlargement of left atrium. Right Atrium: The right atrium is normal in size. Mitral Valve: Normal appearance of the mitral valve. Mild mitral annular calcification. Trace mitral regurgitation. Aortic Valve: Aortic valve Max velocity 2.36 m/sec. Max PG 22.00 mmHg. Mean PG 10.00 mmHg. Aortic sclerosis without significant stenosis. Mild to moderate aortic valve regurgitation. Tricuspid Valve: Normal appearance of the tricuspid valve. Estimated peak PA systolic pressure 20 mmHg. There is trace tricuspid regurgitation. Pulmonic Valve: Normal pulmonic valve appearance. Pericardium: Normal pericardium with no significant pericardial effusion. Aorta: Normal aortic root. IVC: Normal size and normal respiratory collapse consistent with normal right atrial pressure. Conclusions Normal left ventricular systolic function. Normal left ventricular cavity size. Moderate concentric left ventricular hypertrophy. Ejection fraction is visually estimated at 55 %. Tissue Doppler/Mitral Doppler indices are within normal limits. There is mild enlargement of left atrium. Normal appearance of the mitral valve. Mild mitral annular calcification. Trace mitral regurgitation. Aortic valve Max velocity 2.36 m/sec. Max PG 22.00 mmHg. Mean PG 10.00 mmHg. Aortic sclerosis without significant stenosis. Mild to moderate aortic valve regurgitation. Normal appearance of the tricuspid valve. Estimated peak PA systolic pressure 20 mmHg. There is trace tricuspid regurgitation. Electronically Signed By: Reagan Jimenes 04-Mar-2018 21:36:44 -0800 MEGHANN KERR Mar 05, 2018 12:11
[2018-03-05] MEDS: HEPARIN 5,000 UNIT/1 ML VIAL SC SCH ×2 (13:14→21:20)
[2018-03-05] MEDS ORDERED: SODIUM POLYSTYRENE 15 GM KIT (POWDER + SORBITOL) PO ONE (13:30)
[2018-03-05] MEDS: ATORVASTATIN 80 MG TAB PO SCH (20:35)
[2018-03-05] MEDS: EZETIMIBE 10 MG TAB PO SCH (20:36)
[2018-03-05] MEDS: TAMSULOSIN (SR) 0.4 MG CAP PO SCH (20:37)
[2018-03-06] VITALS (7 sets, daily range): BP systolic 115–132; BP diastolic 53–60; PULSE 65–70; RESP 16–20
[2018-03-06] MEDS: HEPARIN 5,000 UNIT/1 ML VIAL SC SCH (05:16)
[2018-03-06] MEDS: CLOPIDOGREL 75 MG TAB PO SCH (08:47)
[2018-03-06] MEDS: ASPIRIN 81 MG TAB PO SCH (08:48)
[2018-03-06] MEDS: NIFEdipine (XL) 90 MG TAB PO SCH (08:48)
[2018-03-06] MEDS: ISOSORBIDE DINITRATE 10 MG TAB PO SCH (08:48)
[2018-03-06] MEDS: FINASTERIDE 5 MG TAB PO SCH (08:48)
--- NOTE | 2018-03-06 09:57 | CONS ---
Date/Time of Note Date/Time of Note DATE: 03/06/18 TIME: 09:57 Assessment/Plan Assessment/Plan Assessment/Plan 1. acute kidney injury on CKD IV due to hemodynamics froM CHF and NSTEMI 2. acute hyperklaemia due to WINTER 3. Metabolic acidosis due to worsening CKD 4. h/O HTN 5. H/o PVD s/p AortoBifemoral Bypass graft 3 months before 6. h/o CAD s/p pacemaker placement 7. H/o HTN 8. H/o HL 9. H/o BPH Plan: Continue current care K improved back to normal Bicitra 30ml PO BID, Na bicarbonate 650mg po daily upon discharge pt previously had a Full CKD wokr up done, no eed to respeat it Uric acid with AM albs Cardiology has been following Result Diagram: 03/03/18200703/06/18 0550 Results 24hrs Laboratory Tests Test 03/05/18 12:11 03/06/18 05:50 Potassium Level 5.4 H 4.7 Activated Partial Thromboplast Time 36.8 H Sodium Level 148 H Chloride Level 116 H Carbon Dioxide Level 16 L Anion Gap 16 H Blood Urea Nitrogen 57 H Creatinine 3.69 H Est Glomerular Filtrat Rate mL/min 17 L Glucose Level 95 Calcium Level 8.1 L Creatine Kinase 48 Creatine Kinase Index 3.1 Creatinine Kinase MB (Mass) 1.47 Troponin I 1.550 *H B-Type Natriuretic Peptide 6030 H Consultation Date/Type/Reason Admit Date/Time Mar 05, 2018 at 07:49 Date of Consultation: Mar 06, 2018 Type of Consult NEPHROLOGY Reason for Consultation acute on chronic renal failure, Metabolic acidosis Requesting Provider: MEGHANN KERR of Present Illness 7-year-old male with a history of hypertension and peripheral vascular disease, status post aortobifemoral bypass graft about 3 months prior to admission, presented to Emergency Room with a complaint of substernal, pressure-like chest pain. There was no associated shortness of breath. There was no nausea or vomiting. Initial evaluation in the emergency room included a repeat troponin. The findings were consistent with acute non-St elevation myocardial infarction. The patient was evaluated by Dr. Jimenes in the emergency room. He had undergone a cardiac workup prior to his aortobifemoral bypass 3 months prior to admission and that study did not show any evidence of coronary ischemia. The EKG showed atrial paced rhythm at a rate of 70 but there was diffuse nonspecific ST abnormalities and septal defect. BUN/Cr 61/3.61, K 5.2, HCo3 16- Renal has been consutled for acidosis, Acute on chronic renal fialure and Hyperkalemia Constitutional: no complaints Eyes: no complaints Respiratory: pleuritic pain, shortness of breath Cardiovascular: chest pain Gastrointestinal: no complaints Genitourinary: no complaints Musculoskeletal: no complaints Skin: no complaints Neurologic: no complaints Endocrine: no complaints Lymphatic: no complaints Psychological: no complaints Immunologic: no complaints Past Medical History Medical History: high cholesterol, hypertension, renal disease Medications Current Medications Nitroglycerin (Nitroglycerin (Sl Tab) 0.4 Mg) 1 tab Q5M UP TO 3 DOSES PRN SL CHEST PAIN Last administered on 03/03/18at 10:33; Admin Dose 1 TAB; Start 03/03/18 at 10:30 Carvedilol (Coreg) 12.5 mg BID PO Last administered on 03/06/18at 08:47; Admin Dose 12.5 MG; Start 03/03/18 at 21:00 EZETIMIBE (Zetia) 10 mg HS PO Last administered on 03/05/18at 20:36; Admin Dose 10 MG; Start 03/03/18 at 21:00 Hydralazine HCl (Apresoline) 100 mg Q8 PO Last administered on 03/06/18at 05:08; Admin Dose 100 MG; Start 03/03/18 at 22:00 Nifedipine (Procardia Xl) 90 mg DAILY PO Last administered on 03/06/18at 08:48; Admin Dose 90 MG; Start 03/04/18 at 09:00 Clonidine (Catapres) 0.1 mg Q6H PRN PO SBP>170; Start 03/03/18 at 17:00 Heparin Sodium (Porcine) (Heparin (1000 Units/ml)) 4,000 unit PER PROTOCOL PRN IV Per Protocol Last administered on 03/04/18at 13:02; Admin Dose 4,000 UNIT; Start 03/03/18 at 20:00 Clonidine HCl (Catapres-Tts 2 Patch) 0.2 patch Q7D TRANSDERM ; Start 03/03/18 at 20:30 Tamsulosin HCl (Flomax) 0.4 mg HS PO Last administered on 03/05/18at 20:37; Admin Dose 0.4 MG; Start 03/03/18 at 21:00 Finasteride (Proscar) 5 mg DAILY PO Last administered on 03/06/18at 08:48; Admin Dose 5 MG; Start 03/04/18 at 09:00 Isosorbide Dinitrate (Isordil) 10 mg TID PO Last administered on 03/06/18 08:48; Admin Dose 10 MG; Start 03/04/18 at 09:00 Aspirin (Aspirin) 81 mg DAILY PO Last administered on 03/06/18 08:48; Admin Dose 81 MG; Start 03/04/18 at 12:30 Clopidogrel Bisulfate (plaVIX) 75 mg DAILY PO Last administered on 03/06/18at 08:47; Admin Dose 75 MG; Start 03/05/18 at 09:00 Atorvastatin Calcium (Lipitor) 80 mg HS PO Last administered on 03/05/18at 20:35; Admin Dose 80 MG; Start 03/04/18 at 21:00 Heparin Sodium (Porcine) (Heparin (5000 Units/1ml)) 5,000 unit Q8 SC Last administered on 03/06/18at 05:16; Admin Dose 5,000 UNIT; Start 03/05/18 at 14:00 Allergies: Coded Allergies: Penicillins (Verified Allergy, Unknown, 03/03/18) Past Surgical History Past Surgical Hx: other (1. Status post aortobifemoral bypass graft about 3 months prior to admission.) Family History Significant Family History: no pertinent family hx Social History Alcohol Use: none Smoking Status: Former smoker Drug Use: none Exam/Review of Systems Vital Signs Vitals Vital Signs Date Temp Pulse Resp B/P (MAP) Pulse Ox O2 O2 Flow FiO2 Time Delivery Rate 03/06/18 70 08:24 03/06/18 98.2 18 132/60 100 Room Air 07:14 (84) Intake and Output 03/05/18 03/05/18 03/06/18 1414:59 22:59 06:59 IntakeIntake Total 980 ml 1000 ml BalanceBalance 980 ml 1000 ml Exam Constitutional: alert Psych: no complaints Head: normocephalic Eyes: nl conjunctiva ENMT: nl external ears & nose Neck: supple, non-tender Respiratory: congested cough, crackles/rales Cardiovascular: regular rate and rhythm, nl pulses Gastrointestinal: soft, non-tender Musculoskeletal: muscle weakness, swelling Extremities: normal pulses Neurological: CONVERSION MAN II-XII intact, nl mental status, nl speech, nl strength Skin: nl turgor Lymph: nl lymph nodes Medications Medications Current Medications Nitroglycerin (Nitroglycerin (Sl Tab) 0.4 Mg) 1 tab Q5M UP TO 3 DOSES PRN SL CHEST PAIN Last administered on 03/03/18at 10:33; Admin Dose 1 TAB; Start 03/03/18 at 10:30 Carvedilol (Coreg) 12.5 mg BID PO Last administered on 03/06/18 08:47; Admin Dose 12.5 MG; Start 03/03/18 at 21:00 EZETIMIBE (Zetia) 10 mg HS PO Last administered on 03/05/18at 20:36; Admin Dose 10 MG; Start 03/03/18 at 21:00 Hydralazine HCl (Apresoline) 100 mg Q8 PO Last administered on 03/06/18at 05:08; Admin Dose 100 MG; Start 03/03/18 at 22:00 Nifedipine (Procardia Xl) 90 mg DAILY PO Last administered on 03/06/18at 08:48; Admin Dose 90 MG; Start 03/04/18 at 09:00 Clonidine (Catapres) 0.1 mg Q6H PRN PO SBP>170; Start 03/03/18 at 17:00 Heparin Sodium (Porcine) (Heparin (1000 Units/ml)) 4,000 unit PER PROTOCOL PRN IV Per Protocol Last administered on 03/04/18at 13:02; Admin Dose 4,000 UNIT; Start 03/03/18 at 20:00 Clonidine HCl (Catapres-Tts 2 Patch) 0.2 patch Q7D TRANSDERM ; Start 03/03/18 at 20:30 Tamsulosin HCl (Flomax) 0.4 mg HS PO Last administered on 03/05/18at 20:37; Admin Dose 0.4 MG; Start 03/03/18 at 21:00 Finasteride (Proscar) 5 mg DAILY PO Last administered on 03/06/18at 08:48; Admin Dose 5 MG; Start 03/04/18 at 09:00 Isosorbide Dinitrate (Isordil) 10 mg TID PO Last administered on 03/06/18 08:48; Admin Dose 10 MG; Start 03/04/18 at 09:00 Aspirin (Aspirin) 81 mg DAILY PO Last administered on 03/06/18 08:48; Admin Dose 81 MG; Start 03/04/18 at 12:30 Clopidogrel Bisulfate (plaVIX) 75 mg DAILY PO Last administered on 03/06/18 08:47; Admin Dose 75 MG; Start 03/05/18 at 09:00 Atorvastatin Calcium (Lipitor) 80 mg HS PO Last administered on 03/05/18at 20:35; Admin Dose 80 MG; Start 03/04/18 at 21:00 Heparin Sodium (Porcine) (Heparin (5000 Units/1ml)) 5,000 unit Q8 SC Last administered on 03/06/18 05:16; Admin Dose 5,000 UNIT; Start 03/05/18 at 14:00 RONNIE LEDBETTER MD Mar 06, 2018 09:57
[2018-03-06] MEDS ORDERED: CITRIC ACID/NA CITRATE 30 ML CUP PO ONE (12:00)
--- NOTE | 2018-03-06 12:12 | PN ---
Date/Time of Note Date/Time of Note DATE: 03/06/18 TIME: 11:53 Assessment/Plan VTE Prophylaxis Risk score (from [facility] [place])>0 risk: 3 SCD applied (from [facility] [place]): Yes Pharmacological prophylaxis: heparin Lines/Catheters IV Catheter Type (from [facility]): Saline Lock Assessment/Plan Assessment/Plan 67 yo male with: 1. Status post NSTEMI, coronary artery disease, medical management only, patient with advanced chronic kidney disease stage IV unable to use contrast for procedure. Appreciate recommendations from cardiology, troponin did peak and has trended back down. Patient off heparin drip for the past [address] Jb Jimenes from cardiology, he himself has talked to Dr. Chadd Schmitz who is the patient's outpatient cardiology and decision currently is for medical management. Patient will be discharged home on current medication including antiplatelets. 2. Congestive heart failure, likely mostly diastolic heart failure with possible underlying mild systolic heart failure, ejection fraction 55% on echocardiogram on this admission. Patient given 1 dose of IV Lasix yesterday based on findings on CT chest, he is on room air no orthopnea no dyspnea on exertion. He will be discharged home today with outpatient follow-up with nephrology and cardiology. No diuretics at discharge. 3. Status post permanent pacemaker, likely with sick sinus syndrome versus high-grade heart block, patient is 100% A paced. 4. Chronic kidney disease stage IV, renal function seems to be at baseline, hyperkalemia resolved after Kayexalate and Lasix given yesterday. Appreciate recommendations from patient's outpatient family day care provider, Dr. Long. Patient will be discharged on sodium bicarbonate 650 mg p.o. daily, he does have a follow-up with Dr. Long as outpatient on 03/25/18. 5. Peripheral vascular disease, status post aorto bifemoral bypass graft approximately 3 months ago. Patient seems to be stable, continue current medications. 6. Hypertension: Continue current medications. We need to clarify if patient indeed on clonidine patch or not. 7. Hyperlipidemia: Continue home medications. 8. BPH: Continue home medications 9. Anemia of chronic disease: Likely secondary to chronic kidney disease, H&H remains stable. Prophylaxis: Tolerating p.o., heparin subcu for DVT prophylaxis. Disposition: Discharge home today, outpatient follow-up with outpatient clinical quality assurance associate and nephrology. Also follow-up with primary care physician. Result Diagram: 03/03/18200703/06/18 0550 Results 24hrs Laboratory Tests Test 03/05/18 12:11 03/06/18 05:50 Potassium Level 5.4 H 4.7 Activated Partial Thromboplast Time 36.8 H Sodium Level 148 H Chloride Level 116 H Carbon Dioxide Level 16 L Anion Gap 16 H Blood Urea Nitrogen 57 H Creatinine 3.69 H Est Glomerular Filtrat Rate mL/min 17 L Glucose Level 95 Calcium Level 8.1 L Creatine Kinase 48 Creatine Kinase Index 3.1 Creatinine Kinase MB (Mass) 1.47 Troponin I 1.550 *H B-Type Natriuretic Peptide 6030 H Subjective 24 Hr Interval Summary Free Text/Dictation Patient remained stable today, no chest pain, troponin has been trending down, off heparin drip for the past 24 hours. Also with the CKD for at least, potassium down to normal. Appreciate recommendations from Dr. Long who is also the patient's outpatient family day care provider. Followed up with Dr. Jimenes from cardiology and Dr. Long today, patient okay to discharge home from their standpoint on current treatment. Exam/Review of Systems Vital Signs Vitals Vital Signs Date Temp Pulse Resp B/P (MAP) Pulse Ox O2 O2 Flow FiO2 Time Delivery Rate 03/06/18 98.1 65 16 124/57 100 Room Air 11:30 (79) Intake and Output 03/05/18 03/05/18 03/06/18 1515:00 23:00 07:00 IntakeIntake Total 980 ml 1000 ml BalanceBalance 980 ml 1000 ml Exam Constitutional: alert, oriented, well developed Respiratory: clear to auscultation, normal air movement Cardiovascular: regular rate and rhythm, nl pulses Gastrointestinal: soft, non-tender Musculoskeletal: nl extremities to inspection, nl gait and stance Extremities: normal pulses Neurological: WELFARE MANAGER II-XII intact, nl mental status, nl speech, nl strength Medications Medications Current Medications Nitroglycerin (Nitroglycerin (Sl Tab) 0.4 Mg) 1 tab Q5M UP TO 3 DOSES PRN SL CHEST PAIN Last administered on 03/03/18at 10:33; Admin Dose 1 TAB; Start 03/03/18 at 10:30 Carvedilol (Coreg) 12.5 mg BID PO Last administered on 03/06/18at 08:47; Admin Dose 12.5 MG; Start 03/03/18 at 21:00 EZETIMIBE (Zetia) 10 mg HS PO Last administered on 03/05/18 20:36; Admin Dose 10 MG; Start 03/03/18 at 21:00 Hydralazine HCl (Apresoline) 100 mg Q8 PO Last administered on 03/06/18 05:08; Admin Dose 100 MG; Start 03/03/18 at 22:00 Nifedipine (Procardia Xl) 90 mg DAILY PO Last administered on 03/06/18 08:48; Admin Dose 90 MG; Start 03/04/18 at 09:00 Clonidine (Catapres) 0.1 mg Q6H PRN PO SBP>170; Start 03/03/18 at 17:00 Heparin Sodium (Porcine) (Heparin (1000 Units/ml)) 4,000 unit PER PROTOCOL PRN IV Per Protocol Last administered on 03/04/18at 13:02; Admin Dose 4,000 UNIT; Start 03/03/18 at 20:00 Clonidine HCl (Catapres-Tts 2 Patch) 0.2 patch Q7D TRANSDERM ; Start 03/03/18 at 20:30 Tamsulosin HCl (Flomax) 0.4 mg HS PO Last administered on 03/05/18 20:37; Admin Dose 0.4 MG; Start 03/03/18 at 21:00 Finasteride (Proscar) 5 mg DAILY PO Last administered on 03/06/18 08:48; Admin Dose 5 MG; Start 03/04/18 at 09:00 Isosorbide Dinitrate (Isordil) 10 mg TID PO Last administered on 03/06/18 08:48; Admin Dose 10 MG; Start 03/04/18 at 09:00 Aspirin (Aspirin) 81 mg DAILY PO Last administered on 03/06/18 08:48; Admin Dose 81 MG; Start 03/04/18 at 12:30 Clopidogrel Bisulfate (plaVIX) 75 mg DAILY PO Last administered on 03/06/18 08:47; Admin Dose 75 MG; Start 03/05/18 at 09:00 Atorvastatin Calcium (Lipitor) 80 mg HS PO Last administered on 03/05/18 20:35; Admin Dose 80 MG; Start 03/04/18 at 21:00 Heparin Sodium (Porcine) (Heparin (5000 Units/1ml)) 5,000 unit Q8 SC Last administered on 03/06/18at 05:16; Admin Dose 5,000 UNIT; Start 03/05/18 at 14:00 Citric Acid/ Sodium Citrate (Bicitra) 30 ml BID PO ; Start 03/06/18 at 21:00 Citric Acid/ Sodium Citrate (Bicitra) 30 ml ONCE ONCE PO ; Start 03/06/18 at 12:00; Stop 03/06/18 at 12:01 MEGHANN KERR Mar 06, 2018 12:04
--- NOTE | 2018-03-06 12:13 | PDOCDIS ---
Discharge Instructions CONDITION [id number] Patient Condition: [id number] Stable HOME CARE INSTRUCTIONS: [id number] Special Diet: [id number] cardiac/renal diet ACTIVITY: [id number] Activity Restrictions: [id number] Slowly Increase Activity FOLLOW UP/APPOINTMENTS Follow-up Plan Follow-up with Dr. Long, outpatient garage mechanic, on 03/25/2018 Follow-up with primary care physician within 1-2 weeks Follow-up with outpatient assembler molded frames within 1-2 weeks MEGHANN KERR Mar 06, 2018 12:13
[2018-03-06] MEDS ORDERED: CLOP75TA28 PO (12:16)
[2018-03-06] MEDS ORDERED: ATOR-2 PO (12:16)
[2018-03-06] MEDS ORDERED: ASPI-831 PO (12:16)
[2018-03-06] MEDS ORDERED: SODI650T PO (12:16)
[2018-03-06] MEDS ORDERED: ISOS10TA2 PO (12:16)
[2018-03-06] MEDS ORDERED: FINA5TAB4 PO (12:16)
--- NOTE | 2018-03-06 12:52 | CONS ---
Date/Time of Note Date/Time of Note DATE: 03/06/18 TIME: 12:47 Assessment/Plan Assessment/Plan Hospital Course IMPRESSION: 1. Chest pain, assess for acute coronary syndrome given the patient with peripheral arterial disease, coronary artery disease equivalents, and cardiac risk factors. Now with positive troponin c/w NSTEMI with mild uptrend in the setting of significant renal failure. No current chest pain. Cardiac enzymes decreased. NL EF by echo 2. Abnormal echocardiogram, assess for acute coronary syndrome. 3. Hypertension. 4. Dyslipidemia. 5. Peripheral arterial disease, status post peripheral bypass 3 months prior. 6. Remote tobacco, quit x8 years. 7. Anemia. 8. Renal failure. 9. Increased BNP, assess for congestive heart failure. Recc: -Tele -Have spoken with patient about cardiac cath and patient does not want cath at this time for fear of needing HD. This was also confirmed by discussion with patient's primary steamblaster Dr Casanova. -Continue asa/plavix to maximize medical therapy -Continue BB/hydralazine/CCB/oral nitrates and follow well controlled BP clsoely -Continue zetia and high dose statin -Ok for d/c planning from cardiac standpoint with outpatient f/u with primary cards in next 1-2 days Result Diagram: 03/03/18200703/06/18 0550 Results 24hrs Laboratory Tests Test 03/06/18 05:50 Activated Partial Thromboplast Time 36.8 H Sodium Level 148 H Potassium Level 4.7 Chloride Level 116 H Carbon Dioxide Level 16 L Anion Gap 16 H Blood Urea Nitrogen 57 H Creatinine 3.69 H Est Glomerular Filtrat Rate mL/min 17 L Glucose Level 95 Calcium Level 8.1 L Creatine Kinase 48 Creatine Kinase Index 3.1 Creatinine Kinase MB (Mass) 1.47 Troponin I 1.550 *H B-Type Natriuretic Peptide 6030 H Consultation Date/Type/Reason Admit Date/Time Mar 05, 2018 at 07:49 Initial Consult Date 03/03/18 Type of Consult cardiology Reason for Consultation Nstemi Requesting Provider: MEGHANN KERR Exam/Review of Systems Vital Signs Vitals Vital Signs Date Temp Pulse Resp B/P (MAP) Pulse Ox O2 O2 Flow FiO2 Time Delivery Rate 03/06/18 70 12:19 03/06/18 98.1 16 124/57 100 Room Air 11:30 (79) Intake and Output 03/05/18 03/05/18 03/06/18 1515:00 23:00 07:00 IntakeIntake Total 980 ml 1000 ml BalanceBalance 980 ml 1000 ml Exam Review of Systems: CONSTITUTIONAL: No fevers, chills. PULMONARY: No sob CARDIOVASCULAR: No chest pain/palpitations GASTROINTESTINAL: No nausea/vomiting. GENITOURINARY: No hematuria/dysuria. MUSCULOSKELETAL: No myagias/arthalgias. PSYCHIATRIC: The patient denies depression. NEUROLOGIC: No weakness Constitutional: alert, oriented Psych: no complaints Head: normocephalic ENMT: mucosa pink and moist Neck: supple, jvd (9 cm water) Respiratory: diminished breath sounds (at bases/B) Cardiovascular: regular rate and rhythm Gastrointestinal: soft, non-tender Musculoskeletal: muscle tone (normal) Extremities: edema (none) Neurological: other (No focal deficits) Medications Medications Current Medications Nitroglycerin (Nitroglycerin (Sl Tab) 0.4 Mg) 1 tab Q5M UP TO 3 DOSES PRN SL CHEST PAIN Last administered on 03/03/18at 10:33; Admin Dose 1 TAB; Start 03/03/18 at 10:30 Carvedilol (Coreg) 12.5 mg BID PO Last administered on 03/06/18at 08:47; Admin Dose 12.5 MG; Start 03/03/18 at 21:00 EZETIMIBE (Zetia) 10 mg HS PO Last administered on 03/05/18at 20:36; Admin Dose 10 MG; Start 03/03/18 at 21:00 Hydralazine HCl (Apresoline) 100 mg Q8 PO Last administered on 03/06/18at 05:08; Admin Dose 100 MG; Start 03/03/18 at 22:00 Nifedipine (Procardia Xl) 90 mg DAILY PO Last administered on 03/06/18at 08:48; Admin Dose 90 MG; Start 03/04/18 at 09:00 Clonidine (Catapres) 0.1 mg Q6H PRN PO SBP>170; Start 03/03/18 at 17:00 Heparin Sodium (Porcine) (Heparin (1000 Units/ml)) 4,000 unit PER PROTOCOL PRN IV Per Protocol Last administered on 03/04/18at 13:02; Admin Dose 4,000 UNIT; Start 03/03/18 at 20:00 Clonidine HCl (Catapres-Tts 2 Patch) 0.2 patch Q7D TRANSDERM ; Start 03/03/18 at 20:30 Tamsulosin HCl (Flomax) 0.4 mg HS PO Last administered on 03/05/18at 20:37; Admin Dose 0.4 MG; Start 03/03/18 at 21:00 Finasteride (Proscar) 5 mg DAILY PO Last administered on 03/06/18 08:48; Admin Dose 5 MG; Start 03/04/18 at 09:00 Isosorbide Dinitrate (Isordil) 10 mg TID PO Last administered on 03/06/18 08:48; Admin Dose 10 MG; Start 03/04/18 at 09:00 Aspirin (Aspirin) 81 mg DAILY PO Last administered on 03/06/18 08:48; Admin Dose 81 MG; Start 03/04/18 at 12:30 Clopidogrel Bisulfate (plaVIX) 75 mg DAILY PO Last administered on 03/06/18 08:47; Admin Dose 75 MG; Start 03/05/18 at 09:00 Atorvastatin Calcium (Lipitor) 80 mg HS PO Last administered on 03/05/18at 20:35; Admin Dose 80 MG; Start 03/04/18 at 21:00 Heparin Sodium (Porcine) (Heparin (5000 Units/1ml)) 5,000 unit Q8 SC Last administered on 03/06/18at 05:16; Admin Dose 5,000 UNIT; Start 03/05/18 at 14:00 Citric Acid/ Sodium Citrate (Bicitra) 30 ml BID PO ; Start 03/06/18 at 21:00 REAGAN GONZALEZ Mar 06, 2018 12:52
--- NOTE | 2018-03-06 14:20 | DS ---
Date/Time of Note Date/Time of Note DATE: 03/06/18 TIME: 14:11 Discharge Summary Admission/Discharge Info Admit Date/Time Mar 03, 2018 at 07:49 Discharge Date/Time Mar 06, 2018 at 13:38 Discharge Diagnosis 1. Status post NSTEMI 2. Coronary artery disease, medical management only 3. Congestive heart failure, likely mostly diastolic heart failure with possible underlying mild systolic heart failure, ejection fraction 55% 4. Status post permanent pacemaker 5. Chronic kidney disease stage IV 6. Hyperkalemia resolved 7. Peripheral vascular disease. 8. Hypertension 9. Hyperlipidemia 10. BPH 11. Anemia of chronic disease Patient Condition: Stable Consults Cardiology, Dr. Jimenes Nephrology, Dr. Long Procedures none Hx of Present Illness A 67-year-old male with a history of hypertension and peripheral vascular disease, status post aortobifemoral bypass graft about 3 months prior to admission, presented to Emergency Room with a complaint of substernal, pressure- like chest pain. There was no associated shortness of breath. There was no nausea or vomiting. Initial evaluation in the emergency room included a repeat troponin. The findings were consistent with acute non-St elevation myocardial infarction. The patient was evaluated by Dr. Jimenes in the emergency room. He had undergone a cardiac workup prior to his aortobifemoral bypass 3 months prior to admission and that study did not show any evidence of coronary ischemia. The EKG showed atrial paced rhythm at a rate of 70 but there was diffuse nonspecific ST abnormalities and septal defect. Hospital Course Patient did rule in for non-ST elevation [place], his troponin did peak around 5. He was on a heparin drip for medical management, he is not a good candidate for angiogram and has declined to do so because of his chronic kidney disease stage IV. There was a concern that with IV contrast load he may end up in the end- stage renal disease and to go on dialysis. The patient definitely was not in favor. After discussion with his outpatient nurse school and his inpatient nurse school the decision was made for medical management only. His troponin did trend back down, he remained chest pain-free and hemodynamically stable. He was therefore discharged home on aspirin and Plavix. Heparin was discontinued 24 hours prior to discharge and repeat troponin are still trending down. He does have chronic kidney disease stage IV and does see Dr. Long as an outpatient who was kind enough to see the patient also has inpatient. Patient had an episode of hyperkalemia which resolved after administration of Kayexalate and Lasix. He is in stable condition for discharge home with outpatient follow- up with nephrology and cardiology and also follow-up with his primary care physician. Patient was discharged in stable condition. Home Meds Active Scripts Sodium Bicarbonate* (Sodium Bicarbonate*) 650 Mg Tablet, 650 MG PO DAILY for 30 Days, TAB 3 Refills Prov:MEGHANN KERR 03/06/18 Finasteride* (Finasteride*) 5 Mg Tablet, 5 MG PO DAILY for 30 Days, TAB 3 Refills Prov:MEGHANN KERR 03/06/18 Atorvastatin* (Atorvastatin*) 80 Mg Tablet, 80 MG PO HS for 30 Days, TAB 3 Refills Prov:MEGHANN KERR 03/06/18 Isosorbide Dinitrate* (Isordil*) 10 Mg Tablet, 10 MG PO TID for 30 Days, TAB 3 Refills Prov:MEGHANN KERR 03/06/18 Aspirin (Aspirin) 81 Mg Chew, 81 MG PO DAILY for 30 Days, TAB 3 Refills Prov:MEGHANN KERR 03/06/18 Clopidogrel Bisulfate (Clopidogrel) 75 Mg Tablet, 75 MG PO DAILY for 30 Days, TAB 3 Refills Prov:MEGHANN KERR 03/06/18 Reported Medications Clonidine Patch (CLONIDINE PATCH) 0.2 Mg/24 Hr Patch, 1 PATCH.WK TD Q7D, #4 PATCH.WK 03/03/18 Carvedilol* (Carvedilol*) 12.5 Mg Tablet, 12.5 MG PO BID, #60 TAB 03/03/18 Tamsulosin Hcl* (Tamsulosin Hcl*) 0.4 Mg Cap.er.24h, 0.4 MG PO HS, CAP 03/03/18 Ezetimibe* (Zetia*) 10 Mg Tablet, 10 MG PO HS, TAB 03/03/18 Nifedipine* (Nifedipine ER*) 90 Mg Tablet.er, 90 MG PO DAILY, TAB 03/03/18 Hydralazine Hcl* (Hydralazine Hcl*) 100 Mg Tablet, 100 MG PO Q8, #90 TAB 03/03/18 Discontinued Reported Medications Finasteride* (Proscar*) 5 Mg Tablet, 5 MG PO DAILY, TAB 08/18/14 Tamsulosin Hcl* (Flomax*) 0.4 Mg Cap.er.24h, 0.4 MG PO DAILY, CAP 08/18/14 Discontinued Scripts Neomycin/Polymyxin/Hydrocort* (Cortisporin* Otic) 10 Ml Susp, 4 DROP RIGHT EAR QID for 7 Days, EA Prov:MANI VALLE PA-C 12/03/16 Clonidine Hcl* (Clonidine Hcl*) 0.1 Mg Tab, 0.1 MG PO Q8 PRN for HTN, #90 TAB for systolic blood pressure above 170 Prov:USHAAliciaJoaquinANGELIKAAPRIL Gong 12/06/15 Losartan Potassium* (Cozaar*) 50 Mg Tablet, 50 MG PO BID for 30 Days, TAB 3 Refills Prov:USHAAliciaTANJA Gong 12/06/15 Atorvastatin* (Atorvastatin*) 40 Mg Tablet, 40 MG PO HS for 30 Days, TAB 3 Refills Prov:USHA,NJoaquinANGELIKAAPRIL Gong 12/06/15 Aspirin* (Aspirin* EC) 81 Mg Tablet.dr, 81 MG PO DAILY for 30 Days, 3 Refills Prov:USHAAliciaTANJA Gong 12/06/15 Amlodipine Besylate* (Amlodipine Besylate*) 5 Mg Tablet, 5 MG PO BID for 30 Days, TAB 3 Refills Prov:USHAAliciaTANJA Gong 12/06/15 Follow-up Plan Follow-up with Dr. Long, outpatient crate builder, on 03/25/2018 Follow-up with primary care physician within 1-2 weeks Follow-up with outpatient nurse school within 1-2 weeks Primary Care Provider Reji Murillo MD Time spent on discharge: > 30 minutes Pending Labs Laboratory Tests Test 03/06/18 05:50 Activated Partial Thromboplast Time 36.8 Sec (23.0-35.0) Sodium Level 148 mmol/L (135-144) Potassium Level 4.7 mmol/L (3.5-5.1) Chloride Level 116 mmol/L (97-110) Carbon Dioxide Level 16 mmol/L (21-31) Anion Gap 16 (5-13) Blood Urea Nitrogen 57 mg/dl (7-20) Creatinine 3.69 mg/dl (0.61-1.24) Est Glomerular Filtrat Rate mL/min 17 mL/min (>60) Glucose Level 95 mg/dl (70-220) Calcium Level 8.1 mg/dl (8.4-10.2) Creatine Kinase 48 IU/L (23-200) Creatine Kinase Index 3.1 Creatinine Kinase MB (Mass) 1.47 ng/ml (0.0-2.4) Troponin I 1.550 ng/ml (0.000-0.120) B-Type Natriuretic Peptide 6030 PG/ML (0-125) MEGHANN KERR Mar 06, 2018 14:20
[2018-03-06] MEDS ORDERED: CITRIC ACID/NA CITRATE 30 ML CUP PO SCH (21:00)
== END 2018-03-06 13:38 | disposition home or self-care (01) | DRG 281 ==
LOC: E/R 10:01 → TEL 13:08 → OBSVTOIN 03-05 07:49
PROVIDERS: ADMIT Internal Medicine; ATTEND Internal Medicine
DX: I21.4 Non-ST elevation (NSTEMI) myocardial infarction (principal); N18.4 Chronic kidney disease, stage 4 (severe); N17.9 Acute kidney failure, unspecified; I13.0 Hypertensive heart and chronic kidney disease with heart failure and stage 1 through stage 4 chronic kidney disease, or unspecified chronic kidney disease; I50.40 Unspecified combined systolic (congestive) and diastolic (congestive) heart failure; E78.5 Hyperlipidemia, unspecified; N40.0 Benign prostatic hyperplasia without lower urinary tract symptoms; Z95.0 Presence of cardiac pacemaker; Z87.891 Personal history of nicotine dependence; E87.5 Hyperkalemia; D63.1 Anemia in chronic kidney disease
CPT/HCPCS: 36415; 71045; 80048; 80053; 80061; 82550; 82553; 83735; 83880; 84132; 84484; 85025; 85610; 85730; 93005; 93306; 96374; 96375; 99217; G0378; J1644; J1940; J2270; J2405; J7030